=== PATIENT | female | born 1955 | race Hispanic/Latino ===

== ENCOUNTER 2018-11-10 14:01 | Emergency (ER) | payer BC ==
[~2018-11-10] VITALS: Ht 147.3 cm; Wt 59.1 kg
[~2018-11-10 14:01] MED LIST: ANTIVERT OR; ARTIFICIAL TEAR1 OS; DICLOFENAC SODI75 MG PO; LACRI-LUBE S.O.P. OP; LISINOPRIL10 M1 PO; MEDDOSEPAK PO; STERAPRED DS10 MG PO; ZITHROMAX500 MG PO; ZOFRAN ODT4 MG OR
[2018-11-10 14:39] LABS: HEMATOCRIT 41.6 % (37.0-47.0); HEMOGLOBIN 14.4 g/dl (12.0-16.0); IMMATURE GRANULOCYTES 0.4 % (0.0-5.0); MEAN CELL VOLUME 89.1 fL CALC (80.0-100.0); MEAN CORPUSCULAR HGB 30.8 pG CALC (26.0-32.0); MEAN CORPUSCULAR HGB CONC 34.6 g/L CALC (32.0-36.0); NEUT# 5.87 thou/uL (2.00-7.15); RED BLOOD COUNT 4.67 mill/uL (4.20-5.60); RED CELL DISTRI WIDTH 13.2 % (11.5-15.5)
[2018-11-10 14:52] LABS: ALBUMIN 4.3 g/dL (3.2-5.0); ALKALINE PHOSPHATASE 99 u/l (38-126); ANION GAP 13 (6-22 (CALC)); BILIRUBIN, TOTAL 0.6 mg/dL (0.0-1.4); BUN 15 mg/dL (8-23); BUN/CREATININE RATIO 30 (12-20 (CALC)); CARBON DIOXIDE 25 mmol/l (22-30); CHLORIDE 108 mmol/l (95-108); CREATININE 0.5 mg/dL (0.5-1.0); GFR > 60 ML/MIN (>=60 (CALC)); GFR FOR AFR.AMER. > 60 ML/MIN (>=60 (CALC)); POTASSIUM 3.8 mmol/l (3.5-5.1); SODIUM 142 mmol/l (137-146); TOTAL PROTEIN 7.7 g/dL (6.3-8.2)
[2018-11-10 15:04] LABS: SGOT/AST 140 u/l (9-36)
[2018-11-10 15:42] LABS: URINE BILIRUBIN - DIPSTICK NEGATIVE (NEGATIVE); URINE BLOOD DIPSTICK NEGATIVE (NEGATIVE); URINE COLOR YELLOW; URINE GLUCOSE - DIPSTICK NEGATIVE (NEGATIVE); URINE KETONE NEGATIVE (NEGATIVE); URINE LEUK ESTERASE TRACE (NEGATIVE); URINE NITRITE - DIPSTICK NEGATIVE (Negative); URINE PROTEIN - DIPSTICK NEGATIVE (NEG-TRACE); URINE UROBILINOGEN - DIPSTICK 0.2 E.U./dL (0.2)
[2018-11-10] MEDS ORDERED: ANTIVERT PO (16:20)
[2018-11-10 16:24] VITALS: BP 113/53
== END 2018-11-10 16:30 | disposition home or self-care (01) | DRG 149 ==
LOC: ED 14:01
DX: R42 Dizziness and giddiness (principal); I10 Essential (primary) hypertension; Z86.73 Personal history of transient ischemic attack (TIA), and cerebral infarction without residual deficits

== ENCOUNTER 2019-11-14 08:59 | Inpatient (IN) | payer SELFPAY ==
[~2019-11-14] VITALS: Ht 147.3 cm; Wt 66.4 kg
[~2019-11-14 08:59] MED LIST changes: +ANTIVERT PO
[2019-11-14 10:35] LABS: IMMATURE GRANULOCYTES 0.5 % (0.0-5.0); MEAN CELL VOLUME 86.9 fL CALC (80.0-100.0); MEAN CORPUSCULAR HGB 30.2 pG CALC (26.0-32.0); MEAN CORPUSCULAR HGB CONC 34.7 g/dL CAL (32.0-36.0); NEUT# 6.02 thou/uL (2.00-7.15); RED CELL DISTRI WIDTH 13.1 % (11.5-15.5)
[2019-11-14 10:49] LABS: HEMOGLOBIN 17.1 g/dl (12.0-16.0); RED BLOOD COUNT 5.67 mill/uL (4.20-5.60)
[2019-11-14 10:50] LABS: HEMATOCRIT 49.3 % (37.0-47.0)
[2019-11-14 10:56] LABS: ALKALINE PHOSPHATASE 55 u/l (38-126); BILIRUBIN, TOTAL 0.7 mg/dL (0.0-1.4); BUN 21 mg/dL (8-23); BUN/CREATININE RATIO 42 (12-20 (CALC)); CARBON DIOXIDE 23 mmol/l (22-30); CHLORIDE 96 mmol/l (95-108); CREATININE 0.5 mg/dL (0.5-1.0); GFR > 60 ML/MIN (>=60 (CALC)); GFR FOR AFR.AMER. > 60 ML/MIN (>=60 (CALC)); LIPASE 245 u/l (23-300); POTASSIUM 4.2 mmol/l (3.5-5.1); SGOT/AST 114 u/l (9-36); TOTAL PROTEIN 6.7 g/dL (6.3-8.2)
[2019-11-14 10:59] LABS: ALBUMIN 3.4 g/dL (3.2-5.0); ANION GAP 14 (6-22 (CALC)); SODIUM 129 mmol/l (137-146)
[2019-11-14 11:00] LABS: C-REACTIVE PROTEIN 3.6 mg/dL (0-0.9)
--- NOTE | 2019-11-14 11:54 | NUR ---
PT C/O GENERALIZED BODYACHES WITH LEFT SHOULDER PAIN. RESPS EVEN, UNALBBORED
--- NOTE | 2019-11-14 12:39 | NUR ---
PT RESTING COMFORTABLY WITH EVEN, UNLABBORED BREATHING. PT IN NAD
--- NOTE | 2019-11-14 14:45 | NUR ---
PT'S RESPS EVEN, UNLABBORED. PT IN NAD.
--- NOTE | 2019-11-14 16:06 | NUR ---
REPORT REC FROM DANYEL VIRGEN
[2019-11-14 16:30] VITALS: BP 119/94
--- NOTE | 2019-11-14 16:45 | NUR ---
LACTIC ACID OF 3.3, BORIS CANO NOTIFIED. ORDERS FOR 1 TIME FLUID BOLUS OBTAINED. WAITING ON PHARMACY APPROVAL.
--- NOTE | 2019-11-14 16:50 | NUR ---
PT ARRIVED TO MS VIA WC. O2 VIA NC @2L IN PLACE. NO DISTRESS NOTED. PT C/O OF GENERALIZED BODY ACHES X4 DAYS. PER PT SHE LIVES WITH DAUGHTER WHO HAS BEEN TESTED FOR COVID-19 AND RESULTS WERE POSITIVE. PT PRESENTED TO THE [facility] ON TUESDAY DUE TO BODY ACHES AND WAS SWABBED FOR THE VIRUS WITH RESULTS PENDING UNTIL TUESDAY. PT DENIES ANY SOB OR COUGH BUT ADMITS TO HAVE HAD A FEVER. PT WITH HX OF HTN BUT REPORTS TO HAVE STOPPED TAKING MEDICATION BECAUSE SHE WAS "BETTER". ORIENTED PT TO ROOM AND EXPLAINED REASONING BEHIND ISOLATION PRECAUTIONS. NO OTHER NEEDS AT THIS TIME. ASSESSMENT COMPLETED. DISCUSSED POC. CALL LIGHT IN REACH. CONTINUE TO MONITOR.
[2019-11-14 19:28] VITALS: BP 118/60
--- NOTE | 2019-11-14 20:37 | NUR ---
PT MEDICATED FOR PAIN REPORTED GENERALIZED AND IN UPPER BACK AND SHOULDER BLADE AREA. ASSISTED PT REPOSITIONING IN THE BED, SHE MOVES WELL WITH INSTRUCTION. LUNG SOUNDS DIM/CLEAR, ABD NONTENDER W/HYPO BOWEL SOUNDS. DINAH CANO INTERPRETED FOR INFLATED PAD BUFFER. CALL LIGHT AT SIDE AND PT REORIENTED TO IT'S USE AND ADJUSTING THE BED FOR COMFORT. TV IS ON AND LIGHTS DOWNLOW.
[2019-11-14 21:17] LABS: URINE BILIRUBIN - DIPSTICK NEGATIVE (NEGATIVE); URINE BLOOD DIPSTICK NEGATIVE (NEGATIVE); URINE COLOR YELLOW; URINE GLUCOSE - DIPSTICK NEGATIVE (NEGATIVE); URINE KETONE NEGATIVE (NEGATIVE); URINE LEUK ESTERASE NEGATIVE (NEGATIVE); URINE NITRITE - DIPSTICK NEGATIVE (Negative); URINE PROTEIN - DIPSTICK TRACE mg/dL (NEG-TRACE); URINE SPECIFIC GRAVITY >=1.030; URINE UROBILINOGEN - DIPSTICK 0.2 E.U./dL (0.2)
[2019-11-15] VITALS (7 sets, daily range): BP systolic 99–126; BP diastolic 48–68
--- NOTE | 2019-11-15 04:07 | NUR ---
PT V/S ASSESSED AT THIS TIME. BLOOD DRAWN FOR LABS. PT TOLERATED WELL. PT STATING SHE IS HAVING PAIN IN BACK AND ARMS, POINTING TO RIGHT ARM. WE ASSISTED PT AND ENCOURAGED HER TO KEEP REPOSITIONING IN BED FOR ASSISTING BACK PAIN. PT STATED TYLENOL DOES NOT WORK FOR HER AND THAT SHE TAKES IBUPROPHEN 800 FOR BACK PAIN AT HOME. PT AGREED TO TRY A WARMPACK FOR BACK.
[2019-11-15 06:00] LABS: HEMATOCRIT 45.8 % (37.0-47.0); HEMOGLOBIN 15.6 g/dl (12.0-16.0); IMMATURE GRANULOCYTES 0.4 % (0.0-5.0); MEAN CELL VOLUME 89.1 fL CALC (80.0-100.0); MEAN CORPUSCULAR HGB 30.4 pG CALC (26.0-32.0); MEAN CORPUSCULAR HGB CONC 34.1 g/dL CAL (32.0-36.0); NEUT# 6.86 thou/uL (2.00-7.15); RED BLOOD COUNT 5.14 mill/uL (4.20-5.60); RED CELL DISTRI WIDTH 13.1 % (11.5-15.5)
[2019-11-15 06:27] LABS: ALBUMIN 2.6 g/dL (3.2-5.0); ALKALINE PHOSPHATASE 42 u/l (38-126); ANION GAP 11 (6-22 (CALC)); BILIRUBIN, TOTAL 0.4 mg/dL (0.0-1.4); BUN 21 mg/dL (8-23); BUN/CREATININE RATIO 53 (12-20 (CALC)); C-REACTIVE PROTEIN 4.4 mg/dL (0-0.9); CARBON DIOXIDE 22 mmol/l (22-30); CHLORIDE 103 mmol/l (95-108); CREATININE 0.4 mg/dL (0.5-1.0); GFR > 60 ML/MIN (>=60 (CALC)); GFR FOR AFR.AMER. > 60 ML/MIN (>=60 (CALC)); POTASSIUM 4.5 mmol/l (3.5-5.1); SGOT/AST 71 u/l (9-36); SODIUM 131 mmol/l (137-146); TOTAL PROTEIN 5.2 g/dL (6.3-8.2)
--- NOTE | 2019-11-15 07:13 | NUR ---
PT SITTING IN BED. A&O X3. O2 VIA NC @ 2L IN PLACE. PT DENIES ANY SOB AT THIS TIME. NON PRODUCTIVE COUGH NOTED. PT C/O OF WORSENING BODY ACHES. AFEBRILE AT THIS TIME. ASSESSMENT COMPLETED. ISOLATION PRECAUTIONS IN PLACE. CALL LIGHT IN REACH. CONTINUE TO MONITOR.
--- NOTE | 2019-11-15 13:58 | NUR ---
PT LAYING IN BED. NO DISTRESS NOTED. PT C/O BODY ACHES. CALL LIGHT IN REACH, CONTINUE TO MONITOR
--- NOTE | 2019-11-15 15:02 | NUR ---
PT LAYING IN BED. PER PT SHE STATES TO BE FEELING A "LITTLE BETTER" . CALL LIGHT IN REACH. CONTINUE TO MONITOR
[2019-11-15] MEDS ORDERED: ZPAK PO (15:46)
[2019-11-15] MEDS ORDERED: MOTRIN200 MG PO (15:48)
--- NOTE | 2019-11-15 15:49 | NUR ---
MK SPOKE WITH PT REGARDING HOME MEDS. UPDATED LIST. PT DOESNT TAKE HOME MEDS BESIDES IBUPROFEN PRN AND TOOK 3 DOSES OF ZPAK. BORIS HARVEY NOTIFIED OF UPDATES.
--- NOTE | 2019-11-15 20:55 | NUR ---
PT MEDICATED AND ASSESSMENT COMPLETED AT THIS TIME. PT DENIES ANY OTHER NEEDS AT THIS TIME. CALL LIGHT W/IN REACH. NO S/O DISTRESS NOTED. PT DOES C/O OF PAIN IN HER UPPER BACK, MEDICATED FOR PAIN 5/10 ON PAIN SCALE ORDERS PROVIDED. PT INSTRUCTED TO CALL ANY OTHER NEEDS ARISE, PT VERBALIZED UNDERSTANDING.
[2019-11-16] VITALS (14 sets, daily range): BP systolic 96–151; BP diastolic 58–84
--- NOTE | 2019-11-16 00:18 | NUR ---
ED CALLED TO REPORT PT IS OFF CUSTOMER ACCOUNT MANAGER. MONITOR FIXED, PT LEFT IN BED W/LIGHTS DOWN LOW. PRODUCT LEAD JUST IN PRIOR OBTAINING V/S. PT DENIES ANY OTHER NEEDS.
--- NOTE | 2019-11-16 02:18 | NUR ---
PT MEDICATED FOR PAIN 6/6 ON PAIN SCALE. PT IS MOANING AND POINTING TO HER BACK. IVF REPLENISHED AT THIS TIME. ASSISTED PT IN CLEANING OFF BST AND NEATENING BEDDING.
--- NOTE | 2019-11-16 04:20 | NUR ---
TECHNOLOGY RESOURCE TEACHER JUST LEFT FROM OBTAINING V/S. BLOOD DRAWN AT THIS TIME FOR MORNING LABS. PT DENIES ANY OTHER NEEDS AT THIS TIME. CALL LIGHT AT BEDSIDE.
[2019-11-16 05:35] LABS: HEMATOCRIT 47.5 % (37.0-47.0); HEMOGLOBIN 15.6 g/dl (12.0-16.0); IMMATURE GRANULOCYTES 0.4 % (0.0-5.0); MEAN CELL VOLUME 89.1 fL CALC (80.0-100.0); MEAN CORPUSCULAR HGB 29.3 pG CALC (26.0-32.0); MEAN CORPUSCULAR HGB CONC 32.8 g/dL CAL (32.0-36.0); NEUT# 7.11 thou/uL (2.00-7.15); RED BLOOD COUNT 5.33 mill/uL (4.20-5.60); RED CELL DISTRI WIDTH 13.2 % (11.5-15.5)
--- NOTE | 2019-11-16 05:59 | NUR ---
BLOOD DRAWN FOR LABS. PT TOLERATED WELL.
[2019-11-16 06:06] LABS: ALBUMIN 2.5 g/dL (3.2-5.0); ALKALINE PHOSPHATASE 43 u/l (38-126); ANION GAP 10 (6-22 (CALC)); BILIRUBIN, TOTAL 0.4 mg/dL (0.0-1.4); BUN 20 mg/dL (8-23); BUN/CREATININE RATIO 61 (12-20 (CALC)); C-REACTIVE PROTEIN 5.6 mg/dL (0-0.9); CARBON DIOXIDE 21 mmol/l (22-30); CHLORIDE 101 mmol/l (95-108); CREATININE 0.3 mg/dL (0.5-1.0); GFR > 60 ML/MIN (>=60 (CALC)); GFR FOR AFR.AMER. > 60 ML/MIN (>=60 (CALC)); POTASSIUM 4.8 mmol/l (3.5-5.1); SGOT/AST 55 u/l (9-36); SODIUM 128 mmol/l (137-146); TOTAL PROTEIN 5.1 g/dL (6.3-8.2)
--- NOTE | 2019-11-16 08:40 | NUR ---
PT O2 % AT 86% WITH O2 VIA NC . O2 TITRATED TO 10L. PT SUSTAINING AT 90%. SHALLOW BREATHING NOTED.
--- NOTE | 2019-11-16 08:48 | NUR ---
DR LUCAS NOTIFIED OF PT STATUS. PER LANCE TRANSFER TO ICU. AWAITING FOR CALL BACK WITH BED #. PT PLACED IN PRONE POSITION ON O2 VIA NC @12 L
--- NOTE | 2019-11-16 10:35 | NUR ---
PT TRANSFERRED TO ICU VIA STRETCHER WITH HIGH CAESAR O2 @ 12L. PT STABLE DURING TRANSPORT. PT IN PRONE POSITION. REPORT GIVEN TO LILO VIRGEN
--- NOTE | 2019-11-16 10:45 | NUR ---
PT ARRIVED TO ICU1 BY STRETCHER ON O2. CONNECTED TO OUR CARDIAC, BP, & O2 MONITOR. PT LAYS IN PRONE POSITION. C/O CHRONIC UPPER BACK/NECK PAIN, REQUESTED HOT PACK.
--- NOTE | 2019-11-16 11:43 | NUR ---
PT REMAINS IN PRONE POSITION. SAT UP ON SIDE OF BED TO EAT FRUIT CUPS ON LUNCH TRAY. PT GIVEN PITCHER OF WATER. STATES SHE IS VERY THIRSTY BUT NOT HUNGRY.
--- NOTE | 2019-11-16 13:36 | NUR ---
CONTACTED DR LOPEZ R/T POSSIBLE ST ELEVATION ON SCADA OPERATOR. AT BEDSIDE FOR TROP DRAW, RT NOTIFIED OF EKG ORDER.
--- NOTE | 2019-11-16 16:01 | NUR ---
DR LOPEZ @BEDSIDE WITH PT/RT.
--- NOTE | 2019-11-16 19:46 | NUR ---
REPORT GIVEN BY REESE VIRGEN. RESP EVEN AND UNLABORED, 12L HI-FLOW HUMITIFED NC, LUNGS SOUNDS CLEAR. NO S/S OF DISTRESS NOTED.PATIENT ENCOURAGED TO STAY IN THE PRONE POSITION. PLAN OF CARE DISCUSSED. PATIENT INFORMED TO CALL WITH ANY QUESTIONS OR CONCERNS.FALL PRECAUTIONS IN PLACE.
--- NOTE | 2019-11-16 21:33 | NUR ---
BEDTIME MEDICATIONS GIVEN. PATIENTS BREATHING LABORED WHEN SHE SITS UP AT BEDSIDE. PATIENT STATES THAT SHE IS TIRED AND IN PAIN.
--- NOTE | 2019-11-16 23:09 | NUR ---
PATIENT REMOVED IV BY ACCIDENT. NEW IV STARTED RAC.
[2019-11-17] VITALS (30 sets, daily range): BP systolic 1–210; BP diastolic 42–107
--- NOTE | 2019-11-17 00:32 | NUR ---
PATIENT RESTING IN BED WITH EYES CLOSED. RESP LABORED, 12 L HI FLOW NC IN PLACE, O2 SAT 91%.
--- NOTE | 2019-11-17 02:15 | NUR ---
PATIENT IN BED WITH EYES CLOSED. RESP LABORED AND EVEN. WILL CONTIUNE TO DEZ.
--- NOTE | 2019-11-17 04:00 | NUR ---
patient has removed iv
--- NOTE | 2019-11-17 04:37 | NUR ---
NEW IV STARTED. PATIENT RESP EVEN AND LABORED. PATIENT STATES THAT THE IV TUBING ISNT LONG ENOUGH IS THE REASON SHE KEEPS PULLING OUT THE IV. FALL PRECATUIONS IN PLACE. PATIENT REMINED THAT SHE NEEDS TO CALL WHEN SHE NEED THE BSC.
[2019-11-17 05:00] LABS: HEMATOCRIT 46.5 % (37.0-47.0); HEMOGLOBIN 15.6 g/dl (12.0-16.0); IMMATURE GRANULOCYTES 1.3 % (0.0-5.0); MEAN CELL VOLUME 89.3 fL CALC (80.0-100.0); MEAN CORPUSCULAR HGB 29.9 pG CALC (26.0-32.0); MEAN CORPUSCULAR HGB CONC 33.5 g/dL CAL (32.0-36.0); NEUT# 21.73 thou/uL (2.00-7.15); RED BLOOD COUNT 5.21 mill/uL (4.20-5.60); RED CELL DISTRI WIDTH 13.4 % (11.5-15.5)
[2019-11-17 05:09] LABS: ALBUMIN 2.6 g/dL (3.2-5.0); ALKALINE PHOSPHATASE 43 u/l (38-126); ANION GAP 12 (6-22 (CALC)); BILIRUBIN, TOTAL 0.5 mg/dL (0.0-1.4); BUN 22 mg/dL (8-23); BUN/CREATININE RATIO 59 (12-20 (CALC)); CARBON DIOXIDE 21 mmol/l (22-30); CHLORIDE 103 mmol/l (95-108); CREATININE 0.4 mg/dL (0.5-1.0); GFR > 60 ML/MIN (>=60 (CALC)); GFR FOR AFR.AMER. > 60 ML/MIN (>=60 (CALC)); POTASSIUM 4.5 mmol/l (3.5-5.1); SGOT/AST 71 u/l (9-36); SODIUM 132 mmol/l (137-146); TOTAL PROTEIN 5.2 g/dL (6.3-8.2)
--- NOTE | 2019-11-17 07:40 | NUR ---
PATIENT WAS IN RESP DISTRESS, O2 SAT DROPPING INTO THE 70'S.RAPID RESPONSE CALLED.PATIENT'S O2 INCREASED TO 14 HI-FLOW, DIDN'T RESPOND WELL. PATIENT SWITCHED TO NON-REBREATHER.
--- NOTE | 2019-11-17 07:46 | NUR ---
RAPID RESPONSE CALLED TO PT ROOM, PT UNABLE TO BREATHE, SATS UNREADABLE BY PULSE O2 MONITOR.
--- NOTE | 2019-11-17 07:48 | NUR ---
DR HAQUE NOTIFIED OF PTS CONDITION. PTS O2 IN 70'S, PT VERY ANXIOUS, GRUNTING. RAPID RESPONSE CALLED FOR INTUBATION. RT @BEDSIDE.
--- NOTE | 2019-11-17 08:01 | NUR ---
PT EVALUATED BY DR SWIFT AT BEDSIDE AND INTUBATION NECESSARY TO PROTECT AIRWAY ABBEY AND ETOM GIVEN BY DR SWIFT
--- NOTE | 2019-11-17 08:07 | NUR ---
INTUBATED BY DR SWIFT WITH A #7
--- NOTE | 2019-11-17 08:18 | NUR ---
PLACED ON VENT AFTER BAGGING DUE TO LOW OXYGEN SAT AT 75%
--- NOTE | 2019-11-17 08:26 | NUR ---
RIGHT TRIPLE LUMEN FEMORAL PLACED BY DR SWIFT
--- NOTE | 2019-11-17 08:40 | NUR ---
BOYLE CATHETER PLACED
--- NOTE | 2019-11-17 09:05 | NUR ---
PT HAS NO BREATH SOUNDS AFTER CXR DONE, RT AND DR SWIFT AT BEDSIDE
--- NOTE | 2019-11-17 09:10 | NUR ---
PT REINTUBATED BY DR NICOLETTE MERCHANT ATTEMPTED BUT UNSUCCESSFUL X3 DUE TO SWELLING.
--- NOTE | 2019-11-17 09:20 | NUR ---
OG TUBE PLACED BY DR SWIFT FOR DECOMPRESSION OF BELLY
--- NOTE | 2019-11-17 11:02 | NUR ---
SPOKE TO DAUGHTER AND UPDATED HER REGARDING PT STATUS, ADVISED HER THAT SHE MAY NEED TO BE TRANSFERRED TO [facility].
--- NOTE | 2019-11-17 11:20 | NUR ---
RT AND NURSEX4 AT BEDSIDE, PT TURNED AND PRONED. PT SATS 97% BP 102/54 HR 115. AT THIS TIME. ETT SECURED WITH HOLISTER AND TAPE.
--- NOTE | 2019-11-17 12:00 | NUR ---
PT TOLERATING PRONE POSITION WITH INCREASED SEDATION AT 45 MCG AND LEVO AT 8MCG
--- NOTE | 2019-11-17 13:40 | NUR ---
DR HAQUE AT BEDSIDE, UPDATED REGARDING URINE OUTPUT OF 100, ORDER RECEIVED FOR- 250 ML NS BOLUS AND NS CONTINUOUS GTT AT 100ML/HR. 25 MCG FENTANYL Q4 PRN FOR PAIN
--- NOTE | 2019-11-17 13:40 | NUR ---
RT PAGED- PT NECK POSITION CHANGE.
--- NOTE | 2019-11-17 13:55 | NUR ---
DR HAQUE ORDERED Q2 NECK TURNS FOR PT WHILE PRONED.
--- NOTE | 2019-11-17 14:20 | NUR ---
RT PAGED TO HELP WITH NECK TURN.
--- NOTE | 2019-11-17 15:22 | NUR ---
25MCG FENTANYL IV FOR PAIN GIVEN, PT GRIMACING AND MOVING HEAD WHILE IN PRONE POSITION.
--- NOTE | 2019-11-17 15:36 | NUR ---
PT SON IN [place] CALLED IN TO CHECK PT STATUS. UPDATED REGARDING PT CONDITION AT THIS TIME.
--- NOTE | 2019-11-17 16:30 | NUR ---
PT MOVING HEAD, PT HEAD TURNED TO LEFT, A DONUT FOAM PILLOW USED TO ACCOMODATE ETT.
--- NOTE | 2019-11-17 20:22 | NUR ---
DAUGHTER FLETCHER CALLED HERE FOR UPDATES ON HER MOTHER, SHE WAS ABLE TO PROVIDE CODE. UPDATES GIVEN.
--- NOTE | 2019-11-17 20:30 | NUR ---
PATIENT LAYS IN PRONE POSITION WITH DONUT CUSHION UNDER HEAD. WHEN SPOKEN TO OR REMOVING HER RESTRAINTS FOR NURSE CARE, SHE DOES BECOME RESTLESS. RIGHT FEMORAL INTACT, FLUSHED AND RETURNS BLOOD. BOYLE CATH INTACT, DRAINS YELLOW/CLOUDY URINE. ET AND OG TUBES INTACT. OG DRAINS DRAK GREEN/BROWN DRAINAGE, ON MEDIUM INTERMITTENT SUCTION. MOUTH CRAE AND SUCTIONING PERFORMED. VENT SETTINGS: PEEP 12/ TV 420, FIO2 100%, RATE 26. SCD'S PLACED. LEVOPHED, PROPOFOL, AND NS IV FLUIDS INFUSING PROPERLY. SR-ST ON TELEMETRY, BP WNL. AFEBRILE. O2 SATS 99%-100%. SKIN INTACT, GENERALIZED EDEMA NOTICED ESPECIALLY ON HANDS. RESTRAINTS INTACT. WILL CONTINUE TO MONITOR.
--- NOTE | 2019-11-17 22:43 | NUR ---
PATIENT RESPIRATORY RATE UP TO 30'S, PT MOVING HEAD AND RAISING HER LEGS UP, KICKING THE BED, TRIES TO MOVE HER LEFT ARM. PROPOFOL INFUSING PER PROTOCOL, FENTANLY IV GIVEN. RESPIRATORY RATE NOW IN THE 20'S, PT NOT MOVING AROUND.
[2019-11-18] VITALS (16 sets, daily range): BP systolic 97–135; BP diastolic 48–70
--- NOTE | 2019-11-18 06:00 | NUR ---
PATIENT TURNED SUPUNE WITH HOB 30 DEGREES, PT WAS WASHED UP, LINENS CHANGED, MOUTH CRAE AND SUCTIONING PERFORMED. SCD'S PLACED BACK ON, RESTRAINTS PLACED BACK ON. R-FEM TRIPLE LUMEN INTACT AND BLOOD WAS DRWAN FOR LABS THIS AM, ABG'S DONE BY RT, PORTABLE CXR DONE. PT SATS 99%-100%. BP WNL. SR ON TELEMETRY, HR RANGES 80'S-90'S.
[2019-11-18 06:27] LABS: ANION GAP 12 (6-22 (CALC)); BUN 19 mg/dL (8-23); BUN/CREATININE RATIO 53 (12-20 (CALC)); CARBON DIOXIDE 22 mmol/l (22-30); CHLORIDE 102 mmol/l (95-108); CREATININE 0.4 mg/dL (0.5-1.0); GFR > 60 ML/MIN (>=60 (CALC)); GFR FOR AFR.AMER. > 60 ML/MIN (>=60 (CALC)); MAGNESIUM 1.9 mg/dL (1.6-2.3); POTASSIUM 4.3 mmol/l (3.5-5.1); SODIUM 131 mmol/l (137-146)
--- NOTE | 2019-11-18 06:45 | NUR ---
RECIEVED REPORT FROM PARAM TOTH. ASSUMED PT CARE.
--- NOTE | 2019-11-18 08:00 | NUR ---
PT REMAINS INTUBATED, SUPINE WITH HOB UP. VENT FIO2@100%, RATE 26, VT 420, PEEP12. OJ IN PLACE, DRAINING GREEN/DARK BROWN DRAINAGE TO MEDIUM SUCTION. LEVOPHED@ 12MCG/MIN, DIPROVAN@ 65MCG/KG/MIN, NS@100ML/HR INFUSING TO R FEM/TL, NO S/S OF INFILTRATION OR INFECTION AT SITE. BOYLE CATHETER REMAINS PATENT DRAINING TO BSD VIA GRAVITY, TEA COLOR URINE. SCD'S BLE, BILAT SOFT WRIST RESTRAINTS IN PLACE ORDERED. PT AFEBRILE REMAINS SR ON TELEMETRY, HR 85. WILL MONITOR CLOSELY.
--- NOTE | 2019-11-18 08:45 | NUR ---
RT AT BEDSIDE FOR ASSESSMENT.
--- NOTE | 2019-11-18 10:06 | NUR ---
DR. HAQUE AT BEDSIDE FOR ASSESSMENT AND TO DISCUSS PLAN OF CARE. NEW ORDERS RECIEVED. [facility] CALLED TO INITIATED TRANSFER FOR HIGHER LEVEL OF CARE, SPOKE WITH
--- NOTE | 2019-11-18 11:21 | NUR ---
RAYSHAWN FROM [facility] TRAN[facility] CALLED FOR UPDATE, WAITING TO HEAR FROM [facility] BEER STILL RUNNER COMPOUNDER. TRANSFER PENDING.
--- NOTE | 2019-11-18 12:00 | NUR ---
PT REPOSITIONED, MOUTH CARE AND BOYLE CARE DONE. RESTRAINTS REMAIN IN PLACE. PT LIFTING LLE AND PICKING LUE UP, BROWS FURROWED, WILL MEDICATED FOR PAIN ORDERED. BOYLE REMAINS PATENT TO BSD VIA GRAVITY. OG TUGE REMAINS INTACT DRAINING TO BSD VIA MEDUIM SUCTION, DARK BROWN DRAINAGE REMAINS. WILL MONITOR CLOSELY.
--- NOTE | 2019-11-18 14:00 | NUR ---
SPOKE WITH RAYSHAWN AT [facility]SFER [facility]. DR. EPSTEIN IS THE ACCEPTING MD. STILL WAITITNG FOR BED ASSIGNMENT IN [facility]/ICU. PT REPOSITIONED, WILL MONITOR.
--- NOTE | 2019-11-18 16:00 | NUR ---
PT REPOSITIONED, BOYLE REMAINS PATENT, DRAINING TO BSD VIA GRAVITY. STILL WAITING FOR BED ASSIGNMENT FROM [facility].
--- NOTE | 2019-11-18 17:15 | NUR ---
RAYSHAWN FROM [facility]/TRANSFER [facility] CALLED WITH BED ASSIGNMENT, PT GOING TO [facility] ICU [id number].
--- NOTE | 2019-11-18 17:25 | NUR ---
[facility] CALLED, SPOKE WITH ANDARDE MACK FOR TRANSPORT 30MIN.
--- NOTE | 2019-11-18 18:06 | NUR ---
CHRISTI ARRIVED AT BEDSIDE FOR TRANSPORT. NOTIFIED [facility] TRANSPORT OF ETS FOR PT, SPOKE WITH RAYSHAWN
--- NOTE | 2019-11-18 18:20 | NUR ---
REPORT CALLED TO [facility] AT [phone], [facility] ICU.
--- NOTE | 2019-11-18 18:37 | NUR ---
[facility] LEFT WITH PT.
== END 2019-11-18 18:38 | disposition short-term general hospital (02) | DRG 208 ==
LOC: ED 08:59 → ED-I 11:04 → ED 11:23 → ED-I 11:24 → MS2 15:17 → ICU 11-16 10:45
PROVIDERS: Family Medicine; Internal Medicine; Nurse Practitioner Family; ADMIT Internal Medicine; ATTEND Internal Medicine
PROC: 06HY33Z Insertion of Infusion Device into Lower Vein, Percutaneous Approach (ICD-10-PCS; principal; 2019-11-17)
PROC: 5A1945Z Respiratory Ventilation, 24-96 Consecutive Hours (ICD-10-PCS; 2019-11-17)
PROC: 0BH17EZ Insertion of Endotracheal Airway into Trachea, Via Natural or Artificial Opening (ICD-10-PCS; 2019-11-17)
PROC: 0BH17EZ Insertion of Endotracheal Airway into Trachea, Via Natural or Artificial Opening (ICD-10-PCS; 2019-11-17)
DX: U07.1 COVID-19 (principal); J12.89 Other viral pneumonia; J96.01 Acute respiratory failure with hypoxia; A41.89 Other specified sepsis; R65.21 Severe sepsis with septic shock; I10 Essential (primary) hypertension; Z86.73 Personal history of transient ischemic attack (TIA), and cerebral infarction without residual deficits; I95.9 Hypotension, unspecified
CPT/HCPCS: J1650; S0164